=== PATIENT | female | born 1985 | race Caucasian/White ===

== ENCOUNTER 2018-08-13 08:55 | Emergency (ER) | payer OTHER, MEDICAID ==
[2018-08-13 09:29] LABS: URINE BLOOD (Dip) POC 3+ (NEGATIVE); URINE GLUCOSE (Dip) POC Negative (NEGATIVE); URINE KETONES (Dip) POC Negative (NEGATIVE); URINE LEUKOCYTE EST (Dip) POC 1+ (NEGATIVE); URINE NITRITE (Dip) POC Negative (NEGATIVE); URINE TOTAL PROTEIN POC Trace (NEGATIVE)
[2018-08-13] MEDS: HYDROCODONE/APAP (10/325) TAB PO (09:49)
[2018-08-13] MEDS: KETOROLAC 30 MG INJ IM (09:54)
== END 2018-08-13 10:50 | disposition home or self-care (01) ==
LOC: E/R 08:55 → FTE 10:50
DX: M54.42 Lumbago with sciatica, left side (principal); K59.00 Constipation, unspecified
CPT/HCPCS: 72100; 81003; 81025; 96372; 99284-25